=== PATIENT | male | born 1985 | race Two or more races ===

== ENCOUNTER 2017-01-11 17:42 | Emergency (ER) | payer SELFPAY ==
[2017-01-11 17:49] VITALS: RESP 18; O2SAT 96
--- NOTE | 2017-01-11 17:53 | EDPHY ---
HPI/HX/ROS/PE/MDM Narrative: CHIEF COMPLAINT: Rapid heart rate HPI: The patient is a Cook Islander-speaking 31 y/o male with a history of PTSD complaining of a rapid heart rate, dizziness, and weakness onset a few hours ago. He was at work when he got into a disagreement. He became angry and left work. He got home and laid down but his heart continued to "pound". He felt dizzy and weak. He has had this happen before but not as strong. He denies chest pain or other associated symptoms. He denies family history of heart attacks. REVIEW OF SYSTEMS: Aside from elements discussed in the HPI, a comprehensive 10-point review of systems was reviewed and is negative. PMH: PTSD SOCIAL HISTORY: Family at bedside, employed, lives in [place] PHYSICAL EXAM: General:Patient is alert, in no acute distress. ENT:Eyes are normal to inspection. ENT inspection normal. Neck: Normal inspection. Full range of motion. Respiratory:No respiratory distress. Breath sounds normal bilaterally. Cardiovascular: Regular rate and rhythm. Strong peripheral pulses. Normal cap refill. Abdomen:The abdomen is nontender to palpation. There are no peritoneal signs. There are normal bowel sounds. Back: Normal to inspection. No tenderness to palpation. Skin: Normal color. No rash. Warm and dry. Extremities: Normal appearance. Full range of motion. Neuro: Oriented x3. Normal motor function. Normal sensory function. ED Course: This patients labs are unremarkable. I feel he is safe to return home. I reassessed the patient and informed him of the results of his work up. Follow up instructions and return precautions given. The patient agrees to this course of action. MDM: This patient presents with palpitations and a 'pounding' heart after a verbal altercation. Workup in ED does not suggest ACS, arrhythmia or infectious process. He feels much better after ativan and IVNS. I think he is safe for outpatient workup. I doubt ACS, PE, PTX, PNA. - Data Points Laboratory Results: Laboratory Results 01/11/17 18:05 01/11/17 18:05 01/11/17 01/11/17 18:05 18:05 WBC 7.97 10^3/uL 10^3/uL (3.80-9.50) RBC 4.83 10^6/uL 10^6/uL (4.40-6.38) Hgb 14.6 g/dL g/dL (13.7-17.5) Hct 43.0 % % (40.0-51.0) MCV 89.0 fL fL (81.5-99.8) MCH 30.2 pg pg (27.9-34.1) MCHC 34.0 g/dL g/dL (32.4-36.7) RDW 12.3 % % (11.5-15.2) Plt Count 267 10^3/uL 10^3/uL (150-400) MPV 8.6 fL L fL (8.7-11.7) Neut % (Auto) 54.5 % % (39.3-74.2) Lymph % (Auto) 33.9 % % (15.0-45.0) [place] % (Auto) 7.9 % % (4.5-13.0) Eos % (Auto) 2.3 % % (0.6-7.6) Baso % (Auto) 1.1 % % (0.3-1.7) Nucleat RBC Rel Count 0.0 % % (0.0-0.2) Absolute Neuts (auto) 4.35 10^3/uL 10^3/uL (1.70-6.50) Absolute Lymphs (auto) 2.70 10^3/uL 10^3/uL (1.00-3.00) Absolute Monos (auto) 0.63 10^3/uL 10^3/uL (0.30-0.80) Absolute Eos (auto) 0.18 10^3/uL 10^3/uL (0.03-0.40) Absolute Basos (auto) 0.09 10^3/uL 10^3/uL (0.02-0.10) Absolute Nucleated RBC 0.00 10^3/uL 10^3/uL (0-0.01) Immature Gran % 0.3 % % (0.0-1.1) Immature Gran # 0.02 10^3/uL 10^3/uL (0.00-0.10) Sodium 142 mEq/L mEq/L (134-144) Potassium 3.6 mEq/L mEq/L (3.5-5.2) Chloride 102 mEq/L mEq/L (97-110) Carbon Dioxide 24 mEq/l mEq/l (22-31) Anion Gap 16 mEq/L mEq/L (8-16) BUN 21 mg/dL mg/dL (7-23) Creatinine 0.8 mg/dL mg/dL (0.7-1.3) Estimated GFR > 60 Glucose 100 mg/dL mg/dL (70-100) Calcium 9.1 mg/dL mg/dL (8.5-10.4) Troponin I < 0.012 ng/mL ng/mL (0.000-0.034) Medications Given: Discontinued Medications Sodium Chloride (Ns) 1,000 mls @ 0 mls/hr IV EDNOW ONE; Wide Open PRN Reason: Protocol Stop: 01/11/17 18:03 Last Admin: 01/11/17 18:20 Dose: 1,000 mls Lorazepam (Ativan Injection) 1 mg IVP EDNOW ONE Stop: 01/11/17 18:03 Last Admin: 01/11/17 18:20 Dose: 1 mg General Time Seen by Provider: 01/11/17 17:51 Initial Vital Signs: Initial Vital Signs Temperature (C) 36.7 C 01/11/17 17:45 Heart Rate 94 01/11/17 17:45 Respiratory Rate 18 01/11/17 17:45 Blood Pressure 120/82 H 01/11/17 17:45 O2 Sat (%) 96 01/11/17 17:45 O2 Delivery Mode Room Air Allergies/Adverse Reactions: No Known Allergies Allergy (Unverified 01/11/17 17:44) Home Medications: Medication Instructions Recorded AMITRIPTYLINE HCL [Amitriptyline 100 mg PO HS 01/11/17 100 mg] Departure - Departure Disposition: Home, Routine, Self-Care Clinical Impression: Heart palpitations, Anxiety attack Condition: Good Instructions: Palpitations (ED), Anxiety (ED) Additional Instructions: 1. Follow-up with your primary care provider for unimproved symptoms in 2-3 days. 2. Return to the ED for worsening of condition. 1. William seguimiento con slaughter medico de cabecera si es que los sntomas no mejoran dentro de 2-3 aranda. 2. Regrese a la nabil de emergencia si slaughter condicin empeora. Referrals: [facility],. [Primary Care Provider] - As per Instructions Stand Alone Forms: [facility] Instructions U[facility]U Print Language: Cook Islander Report Scribed for: Jose Huitron Report Scribed by: Alexandra Mayes Date of Report: 01/11/17 Time of Report: 17:53 Physician Review and Approval Statement: Portions of this note were transcribed by an ED scribe. I personally performed the history, physical exam, and medical decision making; and confirm the accuracy of the information in the transcribed note.
--- NOTE | 2017-01-11 17:58 | CPEKG ---
Heart Rate: 92 RR Interval: 652 P-R Interval: 152 QRSD Interval: 88 QT Interval: 348 QTC Interval: 431 P [place]: 55 QRS [place]: 79 T Wave [place]: 50 EKG Severity - NORMAL ECG - EKG Impression: SINUS RHYTHM Electronically Signed By: Rodri Macario 13-Jan-2017 06:19:00
[2017-01-11] MEDS ORDERED: LORazepam 2 MG/ML INJ IVP ONE (18:02)
[2017-01-11] MEDS ORDERED: NS 1,000 ML IV ONE (18:02)
[2017-01-11 18:12] LABS: % IMMATURE GRANULYOCYTES 0.3 % (0.0-1.1); ABSOLUTE IMMATURE GRANULOCYTES 0.02 10^3/uL (0.00-0.10); ADD DIFF? NO; ADD MORPH? NO; ADD SCAN? NO; ATYPICAL LYMPHOCYTE FLAG 0 (0-99); FRAGMENT RBC FLAG 0 (0-99); HEMOGLOBIN 14.6 g/dL (13.7-17.5); LEFT SHIFT FLG 0 (0-99); LIPEMIA HEMOLYSIS FLAG 90 (0-99); MEAN CELL HEMOGLOBIN 30.2 pg (27.9-34.1); MEAN PLATELET VOLUME 8.6 fL (8.7-11.7); PLATELET CLUMPS FLAG 0 (0-99); PLATELET COUNT 267 10^3/uL (150-400); RED BLOOD CELL COUNT 4.83 10^6/uL (4.40-6.38); RED CELL DISTRIBUTION WIDTH 12.3 % (11.5-15.2)
[2017-01-11 18:30] LABS: ANION GAP 16 mEq/L (8-16); CALCIUM 9.1 mg/dL (8.5-10.4); CARBON DIOXIDE 24 mEq/l (22-31); CHLORIDE 102 mEq/L (97-110); CREATININE 0.8 mg/dL (0.7-1.3); GLOMERULAR FILTRATION RATE > 60; GLUCOSE 100 mg/dL (70-100); POTASSIUM 3.6 mEq/L (3.5-5.2); SODIUM 142 mEq/L (134-144)
[2017-01-11 18:42] LABS: TROPONIN I < 0.012 ng/mL (0.000-0.034)
[2017-01-11 19:17] VITALS: BP 110/71; PULSE 83; TEMP 98.4
== END 2017-01-11 19:17 | disposition home or self-care (01) ==
DX: F41.9 Anxiety disorder, unspecified (principal); E86.9 Volume depletion, unspecified
CPT/HCPCS: 96374; J2060

== ENCOUNTER 2017-02-07 09:17 | Emergency (ER) | payer OTHER ==
[2017-02-07 09:25] VITALS: RESP 18; TEMP 98.2
[2017-02-07] MEDS ORDERED: ONDANSETRON DISINTEGRATING 4 MG TAB PO ONE (09:31)
[2017-02-07] MEDS ORDERED: IBUPROFEN 600 MG TAB PO ONE (09:31)
[2017-02-07] MEDS ORDERED: ONDANSETRON DISINTEGRATING 4 MG TAB ONE (09:36)
--- NOTE | 2017-02-07 10:17 | EDPHY ---
General - History Smoking Status: Former smoker Narrative: CHIEF COMPLAINT: Headache, anxiety HISTORY OF PRESENT ILLNESS: Patient complains of headache and feeling stressed and anxious. The headache has been present for 5 months. No sudden change. No neck pain or stiffness. The pain is primarily in the back of the head/occiput. He does move to the frontal region of the head. It is worse with stress. He is feels very anxious and feels as though this is worsened. No trauma or injury. No vomiting. No visual change. He has been evaluated for this in the past by his primary care physician and does have CT scan performed in the past. He has not been evaluated this week for this. He has not attempted any medications. He was previously on amitriptyline but this was discontinued 1 month ago due to somnolence. No visual disturbance. No other associated complaints or modifying factors. HPI obtained using the hospital's certified Niuean foreign language teacher. REVIEW OF SYSTEMS: Ten systems reviewed and are negative unless otherwise noted in the HPI PCP: [facility] SPECIALISTS: None PAST MEDICAL HISTORY: Anxiety, headaches PAST SURGICAL HISTORY: None SOCIAL HISTORY: Nonsmoker. No drug or alcohol use. Works 2 different jobs here locally. FAMILY HISTORY: Noncontributory EXAMINATION General Appearance: Alert, no distress Head: normocephalic, atraumatic. No Mott sign. No raccoon eyes. Eyes: Pupils equal and round, no conjunctival pallor or injection ENT, Mouth: Mucous membranes moist. Uvula midline and airway widely patent Neck: Normal inspection, supple, non-tender. No meningismus or rigidity. Painless range of motion in all planes. Respiratory: Lungs are clear to auscultation Cardiovascular: Regular rate and rhythm. No murmur Gastrointestinal: Abdomen is soft and nontender Back: non-tender, no bony abnormalities Neurological: GCS 15. Cranial nerves 2-12 grossly intact A&O, nonfocal, normal gait. Strength is symmetric in the arms and legs. Sensory intact distally. No pronator drift. Normal [id number]. Appropriate mentation. Skin: Warm and dry, no rash Extremities: Nontender, no pedal edema Psychiatric: Mood and affect normal DIFFERENTIAL DIAGNOSES: Including but not limited to tension headache, migraine, anxiety, subarachnoid hemorrhage, subdural MDM: 10:14 a.m. Likely tension headache and anxiety. The patient has no meningismus or focal findings. His neuro exam is completely within normal limits. His headache has been present for 5 months. He has been evaluated for this in the past with a CT scan at outside facility. I do not feel he has any risk for acute intracranial hemorrhage given the duration of his symptoms and his examination. I do feel that he has tension headache with underlying anxiety exacerbating this. He may have undiagnosed migraines as well. I did offer further workup here but he is declining. He would like to be discharged home with symptomatic medication. I do feel that this is reasonable given the duration of symptoms and his normal examination. I would like him to take the medication as prescribed as needed. I would like him to contact [facility] on Thursday for outpatient follow-up. We discussed strict ED precautions for sudden change in headache, worsening of the headache, neck pain or stiffness, fever, changes in vision vomiting. He is comfortable with this plan and discharged home stable condition. MDM and discharge instructions discussed using the hospital's certified Niuean foreign language teacher. SUPERVISION: This patient was independently evaluated without direct involvement of or examination by the attending physician. (Paulo Ryan) The patient was evaluated and managed by the physician social research assistant. I have reviewed this chart and I agree with the findings and plan of care as documented , as indicated by my signature. I am the secondary supervising physician. ( Nina Alcaraz) - Objective Vital Signs: Initial Vital Signs Temperature (C) 36.8 C 02/07/17 09:20 Heart Rate 82 02/07/17 09:20 Respiratory Rate 18 02/07/17 09:20 Blood Pressure 128/81 H 02/07/17 09:20 O2 Sat (%) 97 02/07/17 09:20 O2 Delivery Mode Room Air Allergies/Adverse Reactions: No Known Allergies Allergy (Verified 02/07/17 09:18) Home Medications: Medication Instructions Recorded AMITRIPTYLINE HCL [Amitriptyline 100 mg PO HS 01/11/17 100 mg] Codeine/Butalbit/Acetamin/Caff 1 each PO Q6 PRN #12 capsule 02/07/17 [Fioricet-Cod 06-17-709-40 Cap] Diazepam [Valium 5 MG (*)] 5 mg PO TID PRN #6 tab 02/07/17 Medications Given: Discontinued Medications Ibuprofen (Motrin) 600 mg PO EDNOW ONE Stop: 02/07/17 09:32 Last Admin: 02/07/17 09:34 Dose: 600 mg Ondansetron HCl (Zofran Odt) 4 mg PO EDNOW ONE Stop: 02/07/17 09:32 Last Admin: 02/07/17 09:34 Dose: 4 mg Departure - Departure Disposition: Home, Routine, Self-Care Clinical Impression: Tension headache, Anxiety Condition: Good Instructions: Migraine Headache (ED), Tension Headache (ED) Additional Instructions: 1. Medications as prescribed as needed 2. Do not combine the prescription medications. Wait 4-6 hours in between taking each 1 3. Contact [facility] on Thursday for outpatient follow-up and to discuss Neurology referral to the person on-call as provided 4. Strict ED precautions for sudden change in headache, worsening headache, neck pain or stiffness, vomiting, visual change 1. Medicamentos franco fueron recetados franco percy necesarios. 2.No combine los medicamentos recetados. Espere de 4-6 horas para felicity cada haylee. 3.Contacte a la [facility] [place] en la [place] para un seguimiento ambulatorio y para discutir ramona referencia con el Nefrologo con la persona en [place] franco proveedor. 4. Precauciones estrictas del Departamento de Emergencias por cambios en el dolor de vita repentinos, empeoramiento del dolor de vita, dolor de kt o rigidez, vomito, cambios en la vision. Referrals: [facility],. [Clinic] - As per Instructions Koko Finch MD [Medical Doctor] - As per Instructions Stand Alone Forms: Work Excuse Prescriptions: Codeine/Butalbit/Acetamin/Caff [Fioricet-Cod [id number] Cap] 1 each PO Q6 PRN #12 capsule PRN Reason: Headache Diazepam [Valium 5 MG (*)] 5 mg PO TID PRN #6 tab PRN Reason: Headache
[2017-02-07 10:51] VITALS: BP 113/76; PULSE 70; O2SAT 95
== END 2017-02-07 10:50 | disposition home or self-care (01) ==
DX: F41.9 Anxiety disorder, unspecified (principal); G44.209 Tension-type headache, unspecified, not intractable; Z87.891 Personal history of nicotine dependence